=== PATIENT | male | born 1960 | race African-American/Black ===

== ENCOUNTER → 2019-04-01 | Outpatient (CLI) | payer OTHER ==
--- NOTE | 2019-04-01 10:12 | Diagnostic Imaging Report ---
History: Back pain, right hip and leg pain Comparison studies: None Technique: Sagittal, coronal and axial T2 , sagittal T1 and IR, axial spin density oblique. Intravenous contrast: None Findings: Number of lumbar vertebral bodies:5. Short pedicles constitutionally narrow the canal. Alignment: Minimal grade 1 anterolisthesis.No scoliosis. Soft tissues: No T2 hyperintense inflammatory changes. Paraspinal muscles: No signal abnormalities. No atrophy. Lower thoracic cord:Normal in signal and morphology. The tip of the conus is at L1. Cauda equina: No masses. No arachnoiditis. Vertebrae: Normal in height and signal intensity. No compression fractures, infection or neoplasm. Degenerative changes: L1-L2: Mild disc degeneration with loss of T2 signal. Minimal disc bulge results in mild canal stenosis and mild right foraminal narrowing. L2-L3: Disc degeneration with loss of T2 signal. Mild spinal canal facet hypertrophy resulting in mild canal stenosis and mild bilateral foraminal narrowing. L3-L4: Disc degeneration with loss of T2 signal. Mild diffuse disc bulge and mild facet hypertrophy results in mild canal stenosis and mild bilateral foraminal narrowing more prominent on the left. L4-L5: Disc degeneration with loss of T2 signal. Diffuse disc bulge, moderate facet hypertrophy and ligamentum flavum thickening results in moderate canal stenosis, narrowing of the bilateral subarticular recesses more prominent on the right with impingement on the descending L5 nerve root. Mild right and moderate left degenerative foraminal narrowing. Fluid at the bilateral facet joints. 3 mm anteriorly and medially projecting synovial cyst from the right facet joint results in subarticular recess of obliteration. 6 mm posteriorly projecting synovial cyst from the left facet joint. Right pedicles and facet joints marrow edema. L5-S1: Patent canal and foramina. 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 Moderate degenerative canal stenosis, mild right and moderate left degenerative foraminal narrowing at L4-L5. Minimal grade 1 degenerative anterolisthesis at L4-L5. Synovitis changes at L4-L5 with patent marrow edema on the right. Mild multilevel degenerative canal stenosis from L1 through L4. Constitutionally narrowed canal contributions to stenosis. Signed by: DR Shai Weaver M.D. on 04/01/2019 10:09 AM
== END ==
LOC: MRI 06:36
PROVIDERS: ATTEND Family Medicine
DX: S39.012D Strain of muscle, fascia and tendon of lower back, subsequent encounter (principal)
CPT/HCPCS: 72148